=== PATIENT | female | born 1930 | race Hispanic/Latino ===

== ENCOUNTER 2018-04-11 09:05 | Emergency (ER) | payer MEDICARE ==
[2018-04-11 09:20] VITALS: BMI 23.6
[2018-04-11] MEDS ORDERED: Morphine 4 mg/ml ISec IVP STA (09:29)
[2018-04-11] MEDS ORDERED: Sodium Chloride 0.9% 1,000 ML IV STA (09:29)
[2018-04-11] MEDS ORDERED: Morphine 4 mg/ml ISec ONE ×2 (09:33→15:38)
--- NOTE | 2018-04-11 09:52 | ED PDOC ---
Arrival/HPI - General Chief Complaint: Back Pain Time Seen by Provider: 04/11/18 09:28 Historian: Patient, Family (Daughter) - History of Present Illness Narrative History of Present Illness (Text): 04/11/18 09:30 A 87 year old female, whose past medical history includes arthritis, bulging and herniated disks and migraines, presents to the emergency department accompanied by family complaining of severe back pain since 2 days ago. Patient reports she was on the bus when pain occurred and that pain is constant. Patient 's daughter reports patient has experienced vomiting. Patient denies any fever, chills, shortness of breath, chest pain, diarrhea, nausea, urinary symptoms, back pain, neck pain, headache, dizziness, or any other complaints. PMD: Dr. Cj Gallardo Time/Duration: Other (2 days) Symptom Onset: Sudden Symptom Course: Unchanged Activities at Onset: Light Context: Home Past Medical History - Provider Review Nursing Documentation Reviewed: Yes - Cardiac Hx Cardiac Disorders: No - Musculoskeletal/Rheumatological Hx Musculoskeletal Disorders: Yes Hx Arthritis: Yes Hx Back Pain: Yes - Psychiatric Hx Substance Use: No Family/Social History - Physician Review Nursing Documentation Reviewed: Yes Family/Social History: Unknown Family HX Smoking Status: Never Smoked Hx Alcohol Use: Yes Frequency of alcohol use: Socially Hx Substance Use: No Allergies/Home Meds Allergies/Adverse Reactions: Allergies No Known Allergies Allergy (Verified 04/11/18 09:19) Home Medications: Home Meds Medication Instructions Recorded Confirmed Prednisone [Narda] 2 mg PO DAILY 04/11/18 04/11/18 Review of Systems - Physician Review All systems were reviewed & negative as marked: Yes - Review of Systems Constitutional: absent: Fevers, Night Sweats Respiratory: absent: SOB Cardiovascular: absent: Chest Pain Gastrointestinal: Vomiting. absent: Diarrhea, Nausea Musculoskeletal: Back Pain. absent: Neck Pain Neurological: absent: Headache, Dizziness Physical Exam Vital Signs Reviewed: Yes Vital Signs Temp Pulse Resp BP Pulse Ox 04/11/18 15:44 97.9 F 70 18 99 04/11/18 15:27 98.0 F 79 19 149/80 97 04/11/18 13:27 75 18 152/73 H 96 04/11/18 11:37 78 18 165/69 H 98 04/11/18 09:19 98.4 F 57 L 20 171/72 H 100 Temperature: Afebrile Blood Pressure: Hypertensive Pulse: Bradycardic Respiratory Rate: Normal Appearance: Positive for: Well-Appearing, Non-Toxic, Uncomfortable, Other ( Distressed) Pain Distress: None Mental Status: Positive for: Alert and Oriented X 3 - Systems Exam Head: Present: Atraumatic, Normocephalic Pupils: Present: PERRL Extroacular Muscles: Present: EOMI Conjunctiva: Present: Normal Mouth: Present: Moist Mucous Membranes Neck: Present: Normal Range of Motion Respiratory/Chest: Present: Clear to Auscultation, Good Air Exchange. No: Respiratory Distress, Accessory Muscle Use Cardiovascular: Present: Regular Rate and Rhythm, Normal S1, S2. No: Murmurs Abdomen: No: Tenderness, Distention, Peritoneal Signs Back: Present: Normal Inspection Upper Extremity: Present: Normal Inspection. No: Cyanosis, Edema Lower Extremity: Present: Normal Inspection. No: Edema Neurological: Present: GCS=15, CN II-XII Intact, Speech Normal Skin: Present: Warm, Dry, Normal Color. No: Rashes Psychiatric: Present: Alert, Oriented x 3, Normal Insight, Normal Concentration Medical Decision Making ED Course and Treatment: 04/11/18 09:35 Impression: A 87 year old female presents to the emergency department complaining of severe back pain. Plan: -- BMP -- CBC -- Morphine -- Zofran -- IV fluids -- Urinalysis -- Reassess and disposition Prior Visits: Notes and results from previous visits were reviewed. Progress Notes: Patient given morphine 4mg ivp for pain. 04/11/18 14:30 Dictator: Louis Fan MD Procedure: CT Abdomen and Pelvis without intravenous contrast Impression: No acute findings. No evidence of urolithiasis Patient re-evaluated, still in pain. Toradol 30mg ivp given for continued pain. Results discussed with patient and family. Family requesting that I speak to patient's granddaughter on the phone- she is an ICU physician and is concerned for pancreatitis, so lipase added to labs. 04/11/18 14:32 Upon reassessment, patient reports pain has lessened. Patient was informed of new findings- normal lipase- and was advised to follow up with primary doctor. Will write Rx for percocet. Called back to patient's bedside. Family has made appointment with PMD for Saturday however Rx was written for 8 tabs percocet q6h PRN (Rx was written prior to family making PMD appointment), they are concerned this will not last 3 days. Family and patient did not inform myself skeet operator of this concern, rather they called administration. After being approached by administration regarding this issue, I spoke with the patient and family and agreed to write for 12 tabs of percocet instead of 8. - Lab Interpretations Lab Results: 04/11/18 09:54 04/11/18 09:54 Lab Results 04/11/18 12:24: Urine Color Yellow, Urine Appearance Clear, Urine pH 6.5, Ur Specific [place] 1.010, Urine Protein Trace H, Urine Glucose (UA) Negative, Urine Ketones 15 H, Urine Blood Negative, Urine Nitrate Negative, Urine Bilirubin Negative, Urine Urobilinogen 0.2, Ur Leukocyte Esterase Trace H, Urine RBC 0 - 2, Urine WBC 2 - 5, Ur Epithelial Cells 3 - 4, Urine Bacteria Mod 04/11/18 09:54: Lipase 121 04/11/18 09:54: Sodium 142, Potassium 5.2 H, Chloride 105, Carbon Dioxide 25, Anion Gap 18, BUN 21, Creatinine 0.9, Est GFR ( Amer) > 60, Est GFR (Non- Af Amer) 59, Random Glucose 121 H, Calcium 10.0 04/11/18 09:54: WBC 9.8, RBC 4.27, Hgb 14.0, Hct 41.1, MCV 96.3, MCH 32.8, MCHC 34.1, RDW 13.6, Plt Count 289, MPV 9.8, Gran % 81.2 H, Lymph % (Auto) 12.7 L, [place] % (Auto) 5.1, Eos % (Auto) 0.9 L, Baso % (Auto) 0.1, Gran # 7.94 H, Lymph # (Auto) 1.2, [place] # (Auto) 0.5, Eos # (Auto) 0.1, Baso # (Auto) 0.01 - RAD Interpretation Radiology Orders: 04/11/18 13:04 ABD & PELVIS W/O PO OR IV CONT [CT] Stat - Medication Orders Current Medication Orders: Discontinued Medications Sodium Chloride (Sodium Chloride 0.9%) 1,000 mls @ 999 mls/hr IV .Q1H1M STA Stop: 04/11/18 10:29 Last Admin: 04/11/18 09:56 Dose: 999 mls/hr eMAR Start Stop Document 04/11/18 09:56 [email or web address] (Rec: 04/11/18 09:56 [email or web address] [id number]) Intravenous Solution Start Date 04/11/18 Start Time 09:56 End Date 04/11/18 Ketorolac Tromethamine (Toradol) 15 mg IVP STAT STA Stop: 04/11/18 10:25 Last Admin: 04/11/18 10:43 Dose: 15 mg MAR Pain Assessment Document 04/11/18 10:43 [email or web address] (Rec: 04/11/18 10:44 [email or web address] [id number]) Pain Reassessment Is this a pain reassessment? No Sleep Is patient sleeping during reassessment? No Presence of Pain Presence of Pain Yes Pain Scale Used Pain Scale Used Numeric Location Left, Right or Bilateral Left Upper or Lower Lower Pain Location Body Site Back Description Description Constant Intensity of Pain at present 6 Pain Behavior Facial Grimacing Aggravating Factors Changing Position Alleviating Factors/Management Position Change Techniques Alleviating Factors Medication IVP Administration Document 04/11/18 10:43 [email or web address] (Rec: 04/11/18 10:44 [email or web address] [id number]) Charges for Administration # of IVP Administrations 1 Morphine Sulfate (Morphine) 4 mg IVP STAT STA Stop: 04/11/18 09:30 Last Admin: 04/11/18 09:57 Dose: 4 mg MAR Pain Assessment Document 04/11/18 09:57 [email or web address] (Rec: 04/11/18 09:58 [email or web address] [id number]) Pain Reassessment Is this a pain reassessment? No Sleep Is patient sleeping during reassessment? No Presence of Pain Presence of Pain Yes Pain Scale Used Pain Scale Used Numeric Location Left, Right or Bilateral Left Upper or Lower Lower Pain Location Body Site Back Description Description Constant Intensity of Pain at present 9 Pain Behavior Facial Grimacing Aggravating Factors Changing Position Alleviating Factors/Management Medication Techniques Alleviating Factors Medication IVP Administration Document 04/11/18 09:57 [email or web address] (Rec: 04/11/18 09:58 [email or web address] [id number]) Charges for Administration # of IVP Administrations 1 Morphine Sulfate (Morphine) 4 mg IM STAT STA Stop: 04/11/18 15:38 Last Admin: 04/11/18 15:42 Dose: 4 mg MAR Pain Assessment Document 04/11/18 15:42 [email or web address] (Rec: 04/11/18 15:43 [email or web address] [id number]) Pain Reassessment Is this a pain reassessment? No Sleep Is patient sleeping during reassessment? No Presence of Pain Presence of Pain Yes Pain Scale Used Pain Scale Used Numeric Location Left, Right or Bilateral Left Upper or Lower Lower Pain Location Body Site Back Description Description Constant Intensity of Pain at present 5 Pain Behavior Facial Grimacing Aggravating Factors Changing Position Alleviating Factors/Management Position Change Techniques Alleviating Factors Medication IM Administration Charges Document 04/11/18 15:42 [email or web address] (Rec: 04/11/18 15:43 [email or web address] [id number]) Injection Site MAR Injection Site Left Deltoid Charges for Administration # of IM Administrations 1 Ondansetron HCl (Zofran Inj) 4 mg IVP STAT STA Stop: 04/11/18 09:30 Last Admin: 04/11/18 09:58 Dose: 4 mg IVP Administration Document 04/11/18 09:58 [email or web address] (Rec: 04/11/18 09:58 [email or web address] [id number]) Charges for Administration # of IVP Administrations 1 - Scribe Statement The provider has reviewed the documentation as recorded by the Scribdavid Ferrell All medical record entries made by the Scribe were at my direction and personally dictated by me. I have reviewed the chart and agree that the record accurately reflects my personal performance of the history, physical exam, medical decision making, and the department course for this patient. I have also personally directed, reviewed, and agree with the discharge instructions and disposition. Disposition/Present on Arrival - Present on Arrival Any Indicators Present on Arrival: No History of DVT/PE: No History of Uncontrolled Diabetes: No Urinary Catheter: No History of Decub. Ulcer: No History Surgical Site Infection Following: None - Disposition Have Diagnosis and Disposition been Completed?: Yes Diagnosis: Flank pain Disposition: HOME/ ROUTINE Disposition Time: 15:44 Condition: FAIR Discharge Instructions (ExitCare): Flank Pain Additional Instructions: PILI TAI, thank you for letting us take care of you today. Your provider was Lynn Steen MD and you were treated for EXTREME PAIN LEFT SIDE. The emergency medical care you received today was directed at your acute symptoms. If you were prescribed any medication, please fill it and take as directed. It may take several days for your symptoms to resolve. Return to the Emergency Department if your symptoms worsen, do not improve, or if you have any other problems. Please contact your doctor or call one of the physicians/clinics you have been referred to that are listed on the Patient Visit Information form that is included in your discharge packet. Bring any paperwork you were given at discharge with you along with any medications you are taking to your follow up visit. Our treatment cannot replace ongoing medical care by a primary care provider outside of the emergency department. Thank you for allowing the [facility] team to be part of your care today. If you had an X-Ray or CT scan: A Radiologist will review the ED reading if any change in treatment is needed we will contact you. If you had a blood, urine, or wound culture: It will take several days for the results, if any change in treatment is needed we will contact you. If you had an STI test: It will take 48 hours for the results. Please call after 1 week if you have not heard back. Prescriptions: Ondansetron [Zofran] 4 mg PO Q8H #10 tab oxyCODONE/Acetaminophen [Percocet 5/325 mg Tab] 1 tab PO Q6H #12 tab Referrals: Cj Gallardo MD [Primary Care Provider] - Follow up with primary Forms: [employer] (E[place]ian)
[2018-04-11 10:22] LABS: BASO # 0.01 K/mm3 (0.0-2.0); BASO % 0.1 % (0.0-3.0); EOS # 0.1 (0.0-0.7); EOS % 0.9 % (1.5-5.0); GRAN # 7.94 (1.4-6.5); GRAN % 81.2 % (50.0-68.0); LYMPH # 1.2 (1.2-3.4); LYMPH % 12.7 % (22.0-35.0); MEAN CELL VOLUME 96.3 fl (80.0-105.0); MEAN CORPUSCULAR HEMOGLOBIN 32.8 pg (25.0-35.0); MEAN CORPUSCULAR HGB CONC 34.1 g/dl (31.0-37.0); MEAN PLATELET VOLUME 9.8 fl (7.0-11.0); MONO # 0.5 (0.1-0.6); MONO % 5.1 % (1.0-6.0); RBC 4.27 10^6/uL (3.5-6.1); RED CELL DISTRIBUTION WIDTH 13.6 % (11.5-14.5); WHITE BLOOD COUNT 9.8 10^3/ul (4.5-11.0)
[2018-04-11 10:26] LABS: BLOOD UREA NITROGEN 21 mg/dL (7-21); GFR NON-AFRICAN AMERICAN 59
[2018-04-11 12:41] LABS: PH,URINE 6.5 (4.7-8.0); URINE APPEARANCE CLEAR (CLEAR); URINE BILIRUBIN NEGATIVE (NEGATIVE); URINE BLOOD NEGATIVE (NEGATIVE); URINE COLOR YELLOW (YELLOW); URINE GLUCOSE (UA) NEGATIVE (NEGATIVE); URINE LEUKOCYTE ESTERASE TRACE Leu/uL (NEGATIVE); URINE PROTEIN TRACE mg/dL (<30 mg/dL); URINE UROBILINOGEN 0.2 E.U./dL (<1 E.U./dL)
[2018-04-11 12:49] LABS: URINE BACTERIA MOD (NEG); URINE RBC 0 - 2 /hpf (0-2)
--- NOTE | 2018-04-11 14:22 | CT ---
Date of service: 04/11/2018 PROCEDURE: CT Abdomen and Pelvis without intravenous contrast HISTORY: flank pain COMPARISON: None. TECHNIQUE: Without contrast.. Contrast dose: Radiation dose: Total exam DLP = 277 mGy-cm. This CT exam was performed using one or more of the following dose reduction techniques: Automated exposure control, adjustment of the mA and/or kV according to patient size, and/or use of iterative reconstruction technique. FINDINGS: LOWER THORAX: Unremarkable. LIVER: Unremarkable. No gross lesion or ductal dilatation. GALLBLADDER AND BILE DUCTS: Unremarkable. PANCREAS: Unremarkable. No gross lesion or ductal dilatation. SPLEEN: Unremarkable. ADRENALS: Unremarkable. No mass. KIDNEYS AND URETERS: Unremarkable. No hydronephrosis. No solid mass. VASCULATURE: Unremarkable. No aortic aneurysm. BOWEL: Unremarkable. No obstruction. No gross mural thickening. APPENDIX: Unremarkable. Normal appendix. PERITONEUM: Unremarkable. No free fluid. No free air. LYMPH NODES: Unremarkable. No enlarged lymph nodes. BLADDER: Unremarkable. REPRODUCTIVE: Unremarkable. BONES: No acute fracture. OTHER FINDINGS: None. IMPRESSION: No acute findings. No evidence of urolithiasis
[2018-04-11 15:28] VITALS: BP 149/80
[2018-04-11] MEDS ORDERED: Morphine 4 mg/ml ISec IM STA (15:37)
[2018-04-11 15:45] VITALS: PULSE 70; RESP 18; TEMP 97.9; O2SAT 99
== END 2018-04-11 15:45 | disposition home or self-care (01) ==
LOC: ED 09:05
DX: R10.9 Unspecified abdominal pain (principal); M19.90 Unspecified osteoarthritis, unspecified site
CPT/HCPCS: 74176; 80048; 81001; 83690; 85025; 87086; 96372; 96374; 96375; 99283; J1885; J2270; J2405; J7030